=== PATIENT | male | born 1950 | race Caucasian/White ===

== ENCOUNTER → 2024-10-23 12:37 | Day surgery (SDC) | payer MEDICARE, OTHER, SELFPAY ==
--- NOTE | 2024-10-23 16:56 | ITS.CL.IMPLP ---
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
Implant Loop
Procedure Report:
Date of Procedure: October 23, 2024.
Procedure: Insertable Loop Recorder Implant.
Indication: Atrial fibrillation monitoring.
Performing physician: Lauro Shin MD, [facility].
Implant: Medtronic; Reveal LINQII; Model# LNQ22; Serial# [id number].
Technique: The patient was prepped and draped in the usual fashion. A time-out was performed. No intravenous sedation was administered. Local anesthetic was applied to the left pre-pectoral subcutaneous tissue. Using the insertion kit an incision
was made left of the midline in the fourth intercostal space and the device was implanted subcutaneously and directed towards the nipple. Hemostasis was excellent. The skin was closed with steri-strips. The estimated blood loss was less than 1 ml.
There were no complications. No fluoroscopy. R waves measured 0.44 mV and P waves were visible.
Final Programming: Detections: Afib, tachy at 160 bpm, angelika at 30 bpm, pause at 3 sec.
Conclusion: Uncomplicated insertable loop implant.
Recommendation: Routine post-insertable loop care. The device is MRI conditional without a waiting period and up to 3 Lia.
cc: Elvin Castro MD and Porter Hernandez MD.
--- NOTE | 2024-10-23 17:02 | ITS.CL.IMPLP ---
Addendum entered and electronically signed by Lauro Shin MD 10/28/24 09:57:
ERROR. THIS REPORT DOES NOT BELONG TO [facility].
Original Note:
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
Implant Loop
Procedure Report:
Date of Procedure: October 23, 2024.
Procedure: Insertable Loop Recorder Implant.
Indication: Embolic stroke of unknown source.
Performing physician: Lauro Shin MD, [facility].
Implant: Medtronic; Reveal LINQII; Model# LNQ22; Serial# [id number].
Technique: The patient was prepped and draped in the usual fashion. A time-out was performed. No intravenous sedation was administered. Local anesthetic was applied to the left pre-pectoral subcutaneous tissue. Using the insertion kit an incision
was made left of the midline in the fourth intercostal space and the device was implanted subcutaneously and directed towards the nipple. Hemostasis was excellent. The skin was closed with steri-strips. The estimated blood loss was less than 1 ml.
There were no complications. No fluoroscopy. R waves measured 0.35 mV and P waves were visible.
Final Programming: Detections: Afib, tachy at 160 bpm, angelika at 30 bpm, pause at 3 sec.
Conclusion: Uncomplicated insertable loop implant.
Recommendation: Routine post-insertable loop care. The device is MRI conditional without a waiting period and up to 3 Lia.
cc: Tito Santiago MD and Elvin Castro MD.
== END | disposition home or self-care (01) ==
LOC: CATH 12:37
PROVIDERS: ATTENDING PHYSICIAN Internal Medicine Cardiovascular Disease; FAMILY PHYSICIAN Family Medicine; OTHER PHYSICIAN Internal Medicine
DX: Z09 Encounter for follow-up examination after completed treatment for conditions other than malignant neoplasm (principal); I10 Essential (primary) hypertension; I50.32 Chronic diastolic (congestive) heart failure; I48.91 Unspecified atrial fibrillation
CPT/HCPCS: 33285; C1764

== ENCOUNTER → 2025-02-11 14:24 | Outpatient (REF) | payer MEDICARE, OTHER, SELFPAY | LOC: RCS 14:24 | PROVIDERS: ATTENDING PHYSICIAN Internal Medicine; FAMILY PHYSICIAN Family Medicine | DX: I25.810 Atherosclerosis of coronary artery bypass graft(s) without angina pectoris (principal); Z95.3 Presence of xenogenic heart valve; I48.0 Paroxysmal atrial fibrillation | CPT/HCPCS: 93306 ==

== ENCOUNTER 2025-04-21 06:26 | Day surgery (SDC) | payer MEDICARE, OTHER, SELFPAY | END 2025-04-21 13:00 | disposition home or self-care (01) | LOC: GI 06:26 | PROVIDERS: ATTENDING PHYSICIAN Student in an Organized Health Care Education/Training Program | DX: Z12.11 Encounter for screening for malignant neoplasm of colon (principal); K62.5 Hemorrhage of anus and rectum; K64.4 Residual hemorrhoidal skin tags; K57.30 Diverticulosis of large intestine without perforation or abscess without bleeding; K64.8 Other hemorrhoids; R12 Heartburn; K22.89 Other specified disease of esophagus; K31.7 Polyp of stomach and duodenum; K29.50 Unspecified chronic gastritis without bleeding; D13.2 Benign neoplasm of duodenum | CPT/HCPCS: 43239; G0121; 88305; 88342 ==

== ENCOUNTER 2025-07-06 06:11 | Day surgery (SDC) | payer MEDICARE, OTHER, SELFPAY ==
[2025-07-06 07:17] VITALS: BMI 25.2
[2025-07-06 07:18] VITALS: BMI 25.2
[2025-07-06 07:27] VITALS: BP 149/96
[2025-07-06 09:01] VITALS: BP 118/82
[2025-07-06 09:15] VITALS: BP 132/87
[2025-07-06 09:30] VITALS: BP 131/92
== END 2025-07-06 09:37 | disposition home or self-care (01) ==
LOC: SDS 06:11
PROVIDERS: ATTENDING PHYSICIAN Internal Medicine Gastroenterology
DX: D13.2 Benign neoplasm of duodenum (principal); K22.89 Other specified disease of esophagus; Z79.01 Long term (current) use of anticoagulants
CPT/HCPCS: 43254; C1769; 88305

== ENCOUNTER 2025-07-07 11:50 | Inpatient (IN) | payer MEDICARE, OTHER, SELFPAY ==
[2025-07-07] VITALS (27 sets, daily range): BP systolic 18–134; BP diastolic 66–95; PULSE 71–108; BMI 25.9
[2025-07-07 09:22] LABS: Hematocrit 24.8 % (39.0-52.0); Hemoglobin 7.9 g/dL (13.0-18.0); Mean Corp Hgb Conc. 31.9 g/dL (33.0-37.0); Mean Corpuscular Volume 65.6 fL (80.0-94.0); Nucleated Red Blood Cells % 0.2 % (-); Platelet Count 170 10^3/uL (130-400); Red Cell Dist. Width 16.7 % (11.5-14.5)
--- NOTE | 2025-07-07 09:27 | ED.GENMED ---
History of Present Illness
<Al Lugo PA-C - Last Filed: 07/07/25 12:23>
General
Chief Complaint: Rectal Bleeding
Source: patient and spouse
Time Seen by Provider: 07/07/25 08:46
History of Present Illness
History of Present Illness:
74-year-old male with extensive cardiopulmonary past medical history, previous diverticulitis status post duodenal polyp removal yesterday by Dr. Iqbal from GI who presents to the ER for evaluation after having multiple episodes of dark stools
intermixed with maroon stool, lightheaded/dizzy but without any pain associated. Denies any history of similar although he notes that he has had hemorrhoidal bleeding in the past. Denies any fevers, chills, rigors. He had contacted the GI office
this morning and was recommended to come to the ER for further evaluation. Patient is normally on Coumadin however he has not taken the Coumadin since last Saturday. Patient unsure of his baseline hemoglobin.
Past History
<Al Lugo PA-C - Last Filed: 07/07/25 12:23>
Past History
ED Past Medical History: Arrthythmia, CAD, CHF, HTN, Hypercholesterolemia and Valvular disease
ED Past Surgical History: Cardiac, Tonsilectomy and Urological
Social History
Tobacco: Non-smoker
Alcohol: None
Drug: None
Personal:
Living: with family
Review of Systems
<Al Lugo PA-C - Last Filed: 07/07/25 12:23>
Review of Systems
All Other Systems: ROS reviewed and negative except as documented in HPI and ROS
Phy Exam
<Al Lugo PA-C - Last Filed: 07/07/25 12:23>
Physical Exam
Physical Exam:
GENERAL: Alert , in no apparent distress
HEAD: Normocephalic atraumatic
EYE: conjunctiva clear
NECK: Supple, no significant adenopathy.
ENT: o/p clr, mmm.
CARDIAC: Regular rate and rhythm
LUNGS: Clear breath sounds bilaterally, no acute respiratory distress, no wheezes/rales/rhonchi
RECTAL EXAM: Chaperoned by ED RN Earl: Maroon stool, heme positive
NEUROLOGICAL: Alert and oriented
SKIN: Warm and dry, skin intact. Somewhat pale in appearance
MUSCULOSKELETAL: well perfused.
PSYCH: Normal and appropriate interaction.
Scores
<Al Lugo PA-C - Last Filed: 07/07/25 12:23>
Heart Failure Risk
Heart Failure Risk Score: Not Applicable
Heart Score for Chest Pain Patients
STEMI patient?: Not applicable
Withdrawal Assessment of Alcohol
Withdrawal Assessment Completed?: Not applicable
Course
<Al Lugo PA-C - Last Filed: 07/07/25 12:23>
Orders/Labs/Results
Orders:
Orders
07/07/25 09:06
Type+Screen Urgent
Basic Metabolic Panel Urgent
Complete Blood Count/With Diff Urgent
PTT Urgent
Prothrombin Time Urgent
07/07/25 10:32
Admit/Transfer Patient As Directed
Co-Sign Provider:
Level of Care: Inpatient admission
Assign to:: Telemetry
Physician / Group: Hospitalists
Diagnosis: Acute lower GI bleed
Reason for Telemetry: Other
Other Reason for Telemetry: history of AVR
Date to Stop Telemetry: 07/09/25
Time to Stop Telemetry: 11:00
Reason for Hospitalization: Acute lower GI bleed
Expected length of stay greater than two midnights?: Yes
ELOS- Estimated Length of Stay in days: 2
I certify the patient meets the requirements for IP care: Yes
PRN Pain Medication Management As Directed
May give lesser potent ordered pain med per pt: Yes
preference::
Protocol:: Medication orders for pain may be administered in a
manner that supports deferring to patient preference
when the pt is:
- Requesting an ordered lesser potent pain medication.
Least to most potent pain medications are defined
as: acetaminophen < NSAID < tramadol < opioids
(morphine, oxycodone, hydromorphone).
- Requesting a lesser dose of the same medication IF
ORDERED.
- Requesting a less intrusive route of administration
if both routes are prescribed by the provider (PO <
IV).
07/07/25 10:40
Code Status As Directed
Resuscitation Status: Full Code
07/07/25 10:53
Pantoprazole [Protonix IV] 80 mg IV NOW STA
07/07/25 10:58
* Blood Bank Products Urgent
Blood Bank Products: *Packed RBC Leuko(PRBC's)
Quantity: 1
Transfuse Today: Yes
Reason: Bleeding
07/07/25 11:40
0.9% Sodium Chloride 500 ml [Nss] 500 ml IV BOLUS
07/07/25 11:43
Metoprolol Xl [Toprol Xl] 25 mg PO NOW ONE
07/07/25 12:00
Flush (0.9% Sodium Chloride) [Flush (Nss)] See Dose Instructions IV PER PROTOCOL
07/09/25 11:00
DC Protocol for Telemetry ONCE
Abnormal Lab Results
07/07/25
09:06
RBC 3.78 L 10^6/uL
(4.70-6.10)
Hgb 7.9 L g/dL
(13.0-18.0)
Hct 24.8 L %
(39.0-52.0)
MCV 65.6 L fL
(80.0-94.0)
MCH 20.9 L pg
(27.0-31.0)
MCHC 31.9 L g/dL
(33.0-37.0)
RDW 16.7 H %
(11.5-14.5)
Absolute Neuts (auto) 6.8 H 10^3/uL
(1.4-6.5)
Absolute Monos (auto) 0.7 H 10^3/uL
(0.1-0.6)
PT 14.7 H Sec
(11.4-14.6)
APTT 22.2 L Sec
(23.4-35.0)
Chloride 110 H mmol/L
(98-107)
Carbon Dioxide 21 L mmol/L
(22-30)
BUN 30 H mg/dl
(9-20)
Glucose 118 H mg/dl
(70-99)
Crossmatch IS Only See Detail
07/07/25 09:06
07/07/25 09:06
Vital Signs
Initial and Last Documented VS:
Initial Vital Signs
Temp Pulse Resp BP Pulse Ox
97.8 F 88 18 114/66 95
07/07/25 08:21 07/07/25 08:21 07/07/25 08:21 07/07/25 08:21 07/07/25 08:21
Last Documented Vital Signs
Temp Pulse Resp BP Pulse Ox
97.9 F 72 21 110/75 100
07/07/25 10:00 07/07/25 10:00 07/07/25 10:00 07/07/25 10:00 07/07/25 10:00
<Geovani Gaytan MD - Last Filed: 07/07/25 11:45>
Orders/Labs/Results
Orders:
Orders
07/07/25 09:06
Type+Screen Urgent
Basic Metabolic Panel Urgent
Complete Blood Count/With Diff Urgent
PTT Urgent
Prothrombin Time Urgent
07/07/25 10:32
Admit/Transfer Patient As Directed
Co-Sign Provider:
Level of Care: Inpatient admission
Assign to:: Telemetry
Physician / Group: Hospitalists
Diagnosis: Acute lower GI bleed
Reason for Telemetry: Other
Other Reason for Telemetry: history of AVR
Date to Stop Telemetry: 07/09/25
Time to Stop Telemetry: 11:00
Reason for Hospitalization: Acute lower GI bleed
Expected length of stay greater than two midnights?: Yes
ELOS- Estimated Length of Stay in days: 2
I certify the patient meets the requirements for IP care: Yes
PRN Pain Medication Management As Directed
May give lesser potent ordered pain med per pt: Yes
preference::
Protocol:: Medication orders for pain may be administered in a
manner that supports deferring to patient preference
when the pt is:
- Requesting an ordered lesser potent pain medication.
Least to most potent pain medications are defined
as: acetaminophen < NSAID < tramadol < opioids
(morphine, oxycodone, hydromorphone).
- Requesting a lesser dose of the same medication IF
ORDERED.
- Requesting a less intrusive route of administration
if both routes are prescribed by the provider (PO <
IV).
07/07/25 10:40
Code Status As Directed
Resuscitation Status: Full Code
07/07/25 10:53
Pantoprazole [Protonix IV] 80 mg IV NOW STA
07/07/25 10:58
* Blood Bank Products Urgent
Blood Bank Products: *Packed RBC Leuko(PRBC's)
Quantity: 1
Transfuse Today: Yes
Reason: Bleeding
07/07/25 11:40
0.9% Sodium Chloride 500 ml [Nss] 500 ml IV BOLUS
07/07/25 11:43
Metoprolol Xl [Toprol Xl] 25 mg PO NOW ONE
07/07/25 12:00
Flush (0.9% Sodium Chloride) [Flush (Nss)] See Dose Instructions IV PER PROTOCOL
07/09/25 11:00
DC Protocol for Telemetry ONCE
Abnormal Lab Results
07/07/25
09:06
RBC 3.78 L 10^6/uL
(4.70-6.10)
Hgb 7.9 L g/dL
(13.0-18.0)
Hct 24.8 L %
(39.0-52.0)
MCV 65.6 L fL
(80.0-94.0)
MCH 20.9 L pg
(27.0-31.0)
MCHC 31.9 L g/dL
(33.0-37.0)
RDW 16.7 H %
(11.5-14.5)
Absolute Neuts (auto) 6.8 H 10^3/uL
(1.4-6.5)
Absolute Monos (auto) 0.7 H 10^3/uL
(0.1-0.6)
PT 14.7 H Sec
(11.4-14.6)
APTT 22.2 L Sec
(23.4-35.0)
Chloride 110 H mmol/L
(98-107)
Carbon Dioxide 21 L mmol/L
(22-30)
BUN 30 H mg/dl
(9-20)
Glucose 118 H mg/dl
(70-99)
Crossmatch IS Only See Detail
07/07/25 09:06
07/07/25 09:06
Vital Signs
Initial and Last Documented VS:
Initial Vital Signs
Temp Pulse Resp BP Pulse Ox
97.8 F 88 18 114/66 95
07/07/25 08:21 07/07/25 08:21 07/07/25 08:21 07/07/25 08:21 07/07/25 08:21
Last Documented Vital Signs
Temp Pulse Resp BP Pulse Ox
97.9 F 72 21 110/75 100
07/07/25 10:00 07/07/25 10:00 07/07/25 10:00 07/07/25 10:00 07/07/25 10:00
<Al Lugo PA-C - Last Filed: 07/07/25 12:23>
MDM/Problems Addressed
Differential Diagnosis Includes:
Suspected bleeding from procedural site within the duodenum
Gastritis
Peptic ulcer disease
Anemia
Less concern for lower GI bleeding/diverticular bleed/hemorrhoidal bleeding
MDM/Problems Addressed:
74-year-old male presenting to the ER for evaluation of bleeding post polypectomy from the duodenum yesterday, patient normally anticoagulated but he has held this for the last 6 days. No fevers or infectious symptoms and no pain presently. Will
check labs. Patient hooked up to monitoring engineer.
Chronic conditions affecting care: CAD and Arrhythmia
<Al Lugo PA-C - Last Filed: 07/07/25 12:23>
*Pulse Oximetry
SaO2: 98
Oxygen Mode of Delivery: Room air
Patient hypoxic: no
*Critical Care Note
Total Time (30-74mins, 75-104mins- exclusive of procedures): Not Applicable
Data Reviewed
Review of Other/Old Records Reveals: Labs and Records
Source: patient and spouse
<Al Lugo PA-C - Last Filed: 07/07/25 12:23>
Patient Management
Discussion with other providers: Hospitalist and Human Service Coordinator
Escalation/DeEscalation of care consider admission/obs:
GI team notified patient's hemoglobin currently 7.9. In 2021 multiple labs drawn showing hemoglobin is in the sevens. Patient unsure if this is his baseline. Call placed to primary care office to see if they have any updated lab results. GI team
agrees patient should be admitted to be observed. Hospitalist team accepts for continued evaluation and treatment.
<Al Lugo PA-C - Last Filed: 07/07/25 12:23>
Update Note
Update Note:
Received report from patient's primary care office that his last hemoglobin in April was 10.7. Hospitalist team updated.
ED Attending Note
<Al Lugo PA-C - Last Filed: 07/07/25 12:23>
-
Portions of this chart may have been created with voice recognition software.� Occasional wrong word or��sound alike� substitutions may have occurred due to the inherent limitations of voice recognition software.
<Geovani Gaytan MD - Last Filed: 07/07/25 11:45>
ED Attending Note
Patient seen and examined by attending physician: Yes
ED Attending Note:
Patient status post elective outpatient endoscopy yesterday afternoon, for biopsy, due to polyp noted during endoscopy 1 month ago, presents ED secondary to multiple episodes of bloody loose bowel movements since the procedure yesterday, along with
weakness and dizziness. Patient does take Coumadin, which had been held secondary to scheduled procedure. Denies fever or chills. Denies abdominal pain. Denies headache.
Physical Exam
General: no apparent distress, not acutely ill. afebrile
Head: nc/at. eomi
Neck: supple. no meningeal signs.
Heart: s1/s2 regular rate and rhythm
Lungs: no acute respiratory distress. clear bilaterally
Abdomen: normal bowel sounds. not tender.
Neuro: alert and oriented x 3. no focal neurological deficits
Skin: no rash
Psychiatric: well kept. interactive and cooperative
Extremities: no edema. no calf tenderness.
Patient with heme positive stool on exam. H&H noted, noted for significant decreased hemoglobin compared to outpatient blood work from the summer. Patient will be transfused. Blood transfusion consent on the chart.
GI physician on-call notified via [place] text.
Discharge Plan
Departure
Patient Disposition: Admit
Date of Disposition: 07/07/25
Time of Disposition: 09:38
Presentation/result/management discussed w/ accepting MD/DO: Hospitalist
Discharge Problem:
Acute GI bleeding
Interventions
Interventions:
*Risk Screen - Suicide Last Done: 07/07/25 08:21
*General Assessment Last Done: 07/07/25 08:21
*Neglect/Abuse Screening Last Done: 07/07/25 08:21
JX-Tlbisz-Uirpejqumj Assessment Last Done: 07/07/25 09:17
ED- Cardiac Assessment Last Done: 07/07/25 09:17
ED- Pulmonary Assessment Last Done: 07/07/25 09:17
[2025-07-07 09:42] LABS: Blood Urea Nitrogen 30 mg/dl (9-20); Calcium 8.5 mg/dl (8.4-10.2); Carbon Dioxide 21 mmol/L (22-30); Chloride 110 mmol/L (98-107); Estimated Creatinine Clearance 65 ml/min; Glucose 118 mg/dl (70-99); Potassium 4.0 mmol/L (3.5-5.1); Sodium 138 mmol/L (135-145); eGFR > 60.00
[2025-07-07 09:48] LABS: INR 1.10; PT 14.7 Sec (11.4-14.6)
[2025-07-07 09:49] LABS: APTT 22.2 Sec (23.4-35.0)
--- NOTE | 2025-07-07 10:23 | CON.GI ---
Addendum entered and electronically signed by Beatriz Malin MD 07/07/25 14:16:
I saw and examined the patient.
The MANAGER RESPIRATORY CARE's note was reviewed and I agree with the note.
Comment: This is a 74-year-old male with past medical history as listed below who recently had a duodenal polypectomy with Dr. Iqbal yesterday and felt well but after he went home around 4 PM he had a large melanotic bowel movement and today around
6.30 he called me and reported a maroon stool with dizziness, I told him to come into the emergency room and his hemoglobin was 7.9 down from 10.7 in April with an elevated BUN level. He is currently getting 1 unit of blood and he denies any
abdominal pain. No nausea or vomiting. He had held his Coumadin for the polypectomy and last dose of Coumadin was on 06/30 and fortunately he has not resumed it yet.
Assessment and plan acute posthemorrhagic anemia with bleeding most likely from recent polypectomy in the second portion of the duodenum. Will schedule him for an emergent endoscopy. He is currently receiving 1 unit of packed red blood cell. he
was hypotensive when he presented to the emergency room and improved with IV fluids. He also is on Protonix bid.
Addendum entered and electronically signed by LITZY House 07/07/25 11:56:
reviewed with Dr. Malin plan for EGD today but pt just drank 2 cup water. Will add for later today if time allows vs in AM. updated pt and family.
Original Note:
Consultation
-
Date/Time Consultation Requested: 07/07/25 1000
Date/Time Consultation Performed: 07/07/25 1030
Requesting Provider: Al Flanagan PA-C
Performing Provider: LITZY Pulido, Beatriz Malin MD
Reason for Consultation: GI bleeding
Medical History
Chief Complaint / HPI
History of Present Illness:
Pt is a 74yo with hx afib on Coumadin, bioprosthetic AVR, prior CABG, thalassemia minor with chronic anemia, CHF, CAD, GERD, HTN, hypercholesterolemia with hx EGD/colon in April with Dr. Minor with noted concern for killian's with neg bx, benign
gastric polyps, single flat duodenal polyp with bx adenomatous polyps. Colon with hemorrhoids and diverticulosis. He returned 07/06 for removal of duodenal polyp adjacent to ampulla with Dr. IQBAL with mucosal resection with treatment with APC. On
return home felt well then around 4 pm noted tingling and dizziness with sweat and large black/red stool at 4pm. He had further stools at 6:30 am and 8 AM then presents for eval prior hbg 10.7 in April then 7.9 on admission with BUN 30.
Pt otherwise admits mild sore throat after procedure and nausea and mild crampy pain with stools. He also admits to some chronic red blood seen with hx hemorrhoids. but denies odynophagia or constipation. Last Coumadin was 06/30 and did not
resume after EGD.
Past Medical History
Past Medical History: Arrhythmias (PAF), CAD, CHF, GERD, HTN, Hypercholesterolemia, Valvular Disease (prior AVR bioprostetic ) and Other (duodenal polyp removal 07/06, skin lesion, jenkins neuroma, diverticulitis, thalassemia minor with chronic anemia)
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
Social History
Tobacco: Non-Smoker
Alcohol: Occasional (2-3 drinks 3 times per week)
Drug: None
Personal:
Living: With Family
Employment: Retired
Family History
Family History: Other (pancreatic CA- sister )
Allergies / Home Medications
Allergy/AdvReac Type Severity Reaction Status Date / Time
No Known Allergies Allergy Verified 07/07/25 08:20
�Medication �Instructions �Recorded
valsartan 80 mg tablet 80 mg PO DAILY Heart 05/15/22
disease/condition
aspirin 81 mg tablet,delayed 81 mg PO DAILY Blood clot 06/20/22
release prevention/tx
atorvastatin 80 mg tablet 80 mg PO DAILY 10/23/24
ezetimibe 10 mg tablet 10 mg PO DAILY 10/23/24
metoprolol succinate 25 mg 25 mg PO DAILY 10/23/24
tablet,extended release 24 hr
tadalafil 5 mg tablet 5 mg PO DAILYPRN PRN nocturia 10/23/24
amlodipine 10 mg tablet 10 mg PO DAILY 07/06/25
cephalexin 500 mg tablet 500 mg PO BID 07/06/25
ofloxacin 0.3 % eye drops 1 drp RIGHT EYE QID 07/06/25
warfarin 2 mg tablet 3 mg PO MOTUWETHFRSA@189907/07/25
warfarin 2 mg tablet 4 mg PO SZYMANSKI@189907/07/25
Review of Systems
-
History Source: Patient and Family
Constitutional: Reports No Symptoms and Other (sweats )
EENT: Reports Other (recent eye cyst removal on abx prior )
Respiratory: Reports No Symptoms
Cardiac: Reports No Symptoms
Abdomen/GI: Reports Abdominal Pain (minimal ), Nausea, Diarrhea, Bloody Stools and Black Stools
: Reports No Symptoms
Musculoskeletal: Reports No Symptoms
Skin: Reports No Symptoms
Neurological: Reports Dizzy
Endocrine: Reports No Symptoms
Hematologic/Lymphatic: Reports Bleeding
Vital Signs
Temp Pulse Resp BP Pulse Ox
97.9 F 72 21 110/75 100
07/07/25 10:00 07/07/25 10:00 07/07/25 10:00 07/07/25 10:00 07/07/25 10:00
Physical Exam
Exam
General: Well Developed, Well Nourished and No Apparent Distress
HEENT: Normocephalic and Anicteric
Respiratory: Clear
Cardiac: Regular Rhythm
GI: Soft, Non Tender and Non Distended
Musculoskeletal: No Clubbing and No Cyanosis
Skin: Warm and Dry
Neuro: Awake, Alert and AO x 3
Psych: Calm
Results
WBC 9.8 10^3/uL (4.8-10.8) 07/07/25 09:06
Hgb 7.9 g/dL (13.0-18.0) L 07/07/25 09:06
Hct 24.8 % (39.0-52.0) L 07/07/25 09:06
MCV 65.6 fL (80.0-94.0) L 07/07/25 09:06
Plt Count 170 10^3/uL (130-400) 07/07/25 09:06
Absolute Neuts (auto) 6.8 10^3/uL (1.4-6.5) H 07/07/25 09:06
PT 14.7 Sec (11.4-14.6) H 07/07/25 09:06
INR 1.10 07/07/25 09:06
APTT 22.2 Sec (23.4-35.0) L 07/07/25 09:06
Sodium 138 mmol/L (135-145) 07/07/25 09:06
Potassium 4.0 mmol/L (3.5-5.1) 07/07/25 09:06
Chloride 110 mmol/L (98-107) H 07/07/25 09:06
Carbon Dioxide 21 mmol/L (22-30) L 07/07/25 09:06
BUN 30 mg/dl (9-20) H 07/07/25 09:06
Creatinine 1.0 mg/dL (0.7-1.3) 07/07/25 09:06
Calcium 8.5 mg/dl (8.4-10.2) 07/07/25 09:06
Diagnostic Image Results:
Prior GI Procedures:
07/06/25 Rasheed - Z-line irregular - No gross lesions in the entire stomach.
- A single duodenal polyp adjacent to the ampulla. Resected and retrieved. Treated with argon plasma coagulation (APC).
- Mucosal resection was performed. Resection and retrieval were complete.
04/2025- [facility] EGD - Normal proximal esophagus and mid esophagus. - Limestone-colored mucosa suspicious for Killian's
esophagus. Biopsied. - Z-line irregular, 41 cm from the incisors.- A few benign appearing gastric polyps. One was resected and retrieved.
- Otherwise, normal stomach on direct and retroflex views. Biopsies were taken with a cold forceps for
Helicobacter pylori testing- A single flat duodenal polyp found in the second
portion. Biopsied - The examination was otherwise normal.
bx adenomatous polyps neg high grade dysphagia, neg dysplasia
04/2025- [facility]cio colonoscopy - Non-thrombosed, external and internal hemorrhoids
found on perianal exam. Source of rectal bleeding
- The examined portion of the ileum was normal.
- Moderate diverticulosis in the sigmoid colon, in the
descending colon and in the transverse colon. This was
most pronounced within the sigmoid colon with
narrowing of the colon in association with the
diverticular opening. There was no evidence of
diverticular bleeding.
- The examination was otherwise normal on direct and
retroflexion views without any AVMs, lesions, masses
or endoscopic signs of inflammation.
- No specimens collected.
Assessment / Plan
-
Pt is a 74yo with hx afib on Coumadin, bioprosthetic AVR, prior CABG, thalassemia minor with chronic anemia, CHF, CAD, GERD, HTN, hypercholesterolemia with hx EGD/colon in April with Dr. Minor with noted concern for killian's with neg bx, benign
gastric polyps, single flat duodenal polyp with bx adenomatous polyps. Colon with hemorrhoids and diverticulosis. He returned 07/06 for removal of duodenal polyp adjacent to ampulla with Dr. IQBAL with mucosal resection with treatment with APC. On
return home felt well then around 4 pm noted tingling and dizziness with sweat and large black/red stool at 4pm. He had further stools at 6:30 am and 8 AM then presents for eval prior hbg 10.7 in April then 7.9 on admission with BUN 30. Pt otherwise
admits mild sore throat after procedure and nausea and mild crampy pain with stools. He also admits to some chronic red blood seen with hx hemorrhoids. but denies odynophagia or constipation. Last Coumadin was 06/30 and did not resume after EGD.
-UGI bleeding likely post polypectomy bleeding with resection of duodenal flat polyp 07/06
-anemia acute blood loss
-afib on Coumadin prior to admission but has been on hold with GI procedure
other med problems:
-bioprosthetic AVR
- prior CABG
- thalassemia minor with chronic anemia chronic hbg 10-11
- CHF
-CAD
-GERD
- HTN
-hypercholesterolemia
PLAN:
Etiology of bleeding likely post polypectomy bleeding --reviewed EGD from 07/06
[address] Dr[address] Malin for EGD today vs close monitoring
for transfusion
NPO
Protonix BID
serial hbg
updated family
NPO
Coumadin hold
-
-
Thank you for consultation and allowing me to participate in the patient's care. Please call the rigging and controls aircraft mechanic GI physician during the after hours with any questions or concerns.
--- NOTE | 2025-07-07 11:00 | HPS.HSE ---
Family Physician
-
Family Physician: Porter Hernandez
Chief Complaint
-
Dizziness and acute GI bleed.
History of Present Illness
Jeffery is a 74-year-old male with PMHx significant for CAD, nonrheumatic severe AR s/p CABG and bioprosthetic AVR (2021), thalassemia trait, moderate diverticulosis, essential hypertension, hyperlipidemia, leg Calve Perthes disease presents to the
ER for evaluation of bright red blood and black stools associated with dizziness. He reports to have upper GI endoscopy with removal of a duodenal polyp yesterday on outpatient basis. Patient went home stable, was feeling fine until afternoon. In
the afternoon he started feeling lightheaded and dizzy with some sweating along with [id number] in both his hands and feet. He woke up in the evening, continued to feel dizzy, dehydrated and reported to have some tingling and numbness in his
hands and feet. In the p.m. he had a huge bowel movement with some bright red blood, maroon-colored stools and black-colored stools. He has assumed it to be a result of postprocedure, called his physician's office who advised him to come to the ER
if it continues to be about the same. Overnight patient had no sleep disturbances, slept well woke up in the morning to have a huge bowel movement that consisted of clear liquids, black and maroon-colored stool again. He called his GI office and
presented to the ER upon their recommendation. He also reports to have mild left lower quadrant pain, nonradiating, stabbing about 1-2/10 in intensity that lasted for about 2 to 3 hours yesterday.
Upon review of systems, he reports to have some nausea and bloating. He denies having emesis, hematuria, dysuria, fevers, chills, chest pain, shortness of breath on exertion, orthopnea, PND. He also denies having any focal weakness or paresthesias.
Patient reports to have GI bleeds in the past associated with his internal hemorrhoids. He also reports to have been on warfarin for bioprosthetic aortic valve and A-fib, which was on hold since Saturday of last week for his procedure. Of note
his baseline hemoglobin is between 10-12 for thalassemia trait, he was recently diagnosed with infected stye of his right eye for which she is using antibiotics.
Medical History
Past Medical History
Past Medical History: Reports Other (CAD, nonrheumatic severe AR s/p CABG and bioprosthetic AVR (2021), thalassemia trait, moderate diverticulosis, essential hypertension, hyperlipidemia, leg Calve Perthes disease)
Past Surgical History: Reports Other (S/p CABG, bioprosthetic aortic valve replacement.)
Social History
Tobacco: Non-smoker
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
Drug: None
Personal:
Living: With Family
Employment: Retired
Family History
Family History: Other (Father with history of CABG, mother with history of brain cancer and pulmonary fibrosis, lung transplant and brother.)
Allergies / Home Medications
Allergies reflects when Allergies were last updated in [facility].
Home Medications with original date entered in [facility]
Allergy/Medication List:
Allergies
Allergy/AdvReac Type Severity Reaction Status Date / Time
No Known Allergies Allergy Verified 07/07/25 08:20
Home Medications
valsartan 80 mg tablet 80 mg PO DAILY Heart disease/condition 05/15/22
aspirin 81 mg tablet,delayed release 81 mg PO DAILY Blood clot prevention/tx 06/20/22
atorvastatin 80 mg tablet 80 mg PO DAILY 10/23/24
ezetimibe 10 mg tablet 10 mg PO DAILY 10/23/24
metoprolol succinate 25 mg tablet,extended release 24 hr 25 mg PO DAILY 10/23/24
tadalafil 5 mg tablet 5 mg PO DAILYPRN PRN nocturia 10/23/24
amlodipine 10 mg tablet 10 mg PO DAILY 07/06/25
cephalexin 500 mg tablet 500 mg PO BID 07/06/25
ofloxacin 0.3 % eye drops 1 drp RIGHT EYE QID 07/06/25
warfarin 2 mg tablet 3 mg PO MOTUWETHFRSA@189907/07/25
warfarin 2 mg tablet 4 mg PO SZYMANSKI@189907/07/25
Review of Systems
-
History Source: Patient
A 12 point ROS was completed and negative except as noted: Yes
Constitutional: Reports Fatigue
EENT: Reports No Symptoms
Respiratory: Reports No Symptoms
Cardiac: Reports Diaphoresis
Abdomen/GI: Reports Abdominal Pain, Nausea, Bloody Stools and Black Stools
: Reports No Symptoms
Musculoskeletal: Reports No Symptoms
Skin: Reports No Symptoms
Neurological: Reports Headache
Endocrine: Reports No Symptoms
Hematologic/Lymphatic: Reports No Symptoms
Psych: Reports No Symptoms
Physical Exam
Vital Signs
Vital Signs
Temp Pulse Resp BP Pulse Ox
97.9 F 72 21 110/75 100
07/07/25 10:00 07/07/25 10:00 07/07/25 10:00 07/07/25 10:00 07/07/25 10:00
Physical Exam
General: Comfortable and Conversant
HEENT: Moist mucous membranes
Respiratory: Clear; No Wheezes, Rales, Rhonchi or Crackles
Cardiac: S1/S2 and Regular Rhythm; No Murmur, Rub or Gallop
GI: Soft, Non Tender, Non Distended, Normal Bowel Sounds and No Hepatosplenomegaly
Rectal: Hem Positive
Genito-urinary: Deferred by me
Musculoskeletal: No Clubbing, No Cyanosis and No Edema
Neuro: AO x 3 and Nonfocal/grossly intact
Psych: Calm
Laboratory Results
-
07/07/25 09:06
07/07/25 09:06
Laboratory Results
PT 14.7 Sec (11.4-14.6) H 07/07/25 09:06
INR 1.10 07/07/25 09:06
APTT 22.2 Sec (23.4-35.0) L 07/07/25 09:06
Data Reviewed
-
Medical Tests (Nuc Med, Echo, EKG etc): Image Personally Visualized and interpreted, Report Reviewed by me, Discussed with Physician, Discussed with Patient and Discussed with Family
Lab Data: Labs Reviewed by me, Discussed with Physician, Discussed with Patient and Discussed with Family
Impression/Plan
-
IMPRESSION: 74-year-old male with PMHx significant for CAD, nonrheumatic severe AR s/p CABG and bioprosthetic AVR (2021), thalassemia trait, moderate diverticulosis, essential hypertension, hyperlipidemia, leg Calve Perthes disease presents to the
ER for evaluation of bright red blood and black stools associated with dizziness. S/p endoscopy on 07/06/2025. Patient is being admitted for evaluation of acute GI bleed.
PLAN:
# Acute GI bleed-
Likely secondary to procedure yesterday versus colonic diverticulosis.
H&H-hemoglobin at 7.9, baseline [id number] (thalassemia trait)
Elevated BUN at 30 without elevation in serum creatinine.
Hemodynamically stable, s/p IV Protonix in the ER.
Admit to telemetry.
Hold Coumadin and aspirin. Continue Protonix twice daily.
Transfuse 1 unit of hemoglobin now, trend H&H.
Transfuse hemoglobin if less than 8.
GI consulted, appreciate inputs.
Currently n.p.o., advance diet per GI recommendations.
# Acute blood loss anemia-
Baseline [id number] (thalassemia trait)
From GI bleed, transfuse 1 unit blood.
Trend H&H.
# Paroxysmal A-fib-
On rate control with Toprol-XL.
History of bioprosthetic AVR
On Coumadin, held since 06/30/2025
Continue cardiac monitoring for A-fib
# Essential hypertension-
Continue amlodipine 10 mg p.o.
Continue valsartan 80 mg.
# Hyperlipidemia-
Continue ezetimibe and atorvastatin
# Infected external hordoleum -
Right eye, on cephalexin and ofloxacin
Continue the course through 07/10.
# Conditions SUPERINTENDENT PIER-
CAD s/p CABG
Nonrheumatic severe AR s/p bioprosthetic AVR
# DVT prophylaxis-
Sequential compression devices
# CODE STATUS-
Full code.
--- NOTE | 2025-07-07 11:05 | W.PN.UPDATE ---
Update Note
Progress Note Update
This is an addendum to H&P written by resident physician Dr. Emily James
I saw and examined the patient.
The LOAN INTERVIEWER [employer]'s note was reviewed and I agree with the note.
Comment:
Mr. Jeffery Reddy is a 74 yo man with hx CAD s/p CABG, atrial fibrillation, s/p bioprosthetic aortic valve replacement, thalassemia (baseline Hg 10-11), HTN, HLD s/p EGD with duodenal polyp removal yesterday presents with two episodes of black and
bloody stools. Triage vitals stable. labs with Hg 7.9, drop from 10-11 baseline, BUN 30, Cr 1.0. On exam patient is comfortable, AAO x 3, chest clear, mild epigastric tenderness.
UGIB s/p polyp removal EGD
-admit to telemetry
-transfuse 1 unit PRBC for Hg 7.9 and hx CAD
-IV Protonix
-keep NPO, maintenance IVF
CAD s/p CABG
s/p bioprosthetic valve
Essential HTN
HLD
DVT PPx SCD
Remainder of plan per resident physician note
76 minutes spent on patient care
--- NOTE | 2025-07-07 11:41 | CM ---
Patient seen at bedside with patient spouse in ED. Patient states that he lives in a split level home and that his PCP is Dr. Hernandez. Patient uses the [facility] on on . Patient has no DME at home and he last needed [facility] 3 years ago
following surgery. CM will continue to follow for discharge planning needs.
Plan; home with no needs vs VN; pending medical treatment plan
[2025-07-07] MEDS: TOPROL XL 25 MG PO (11:59)
[2025-07-07] MEDS: PROTONIX IV 80 MG IV (12:00)
[2025-07-07] MEDS: NSS 500 IV (12:00)
[2025-07-07 15:21] LABS: Hematocrit 24.8 % (39.0-52.0); Hemoglobin 8.3 g/dL (13.0-18.0)
[2025-07-07] MEDS: PROTONIX 100 IV (16:15)
[2025-07-07] MEDS: OCUFLOX 1 DROP RIGHT EYE ×2 (16:16→19:49)
--- NOTE | 2025-07-07 16:38 | PTCARENOTE ---
received pt from GI lab s/p endoscopy. Pt aaox3, able to make needs known. at bedside. Admission questions completed. Ortho VS done. IV protonix gtt started through [facility]. H&H Q8 x3, next to be drawn at 23:00. Last hgb 8.3 from 7.9 prior.
Coumadin remains on hold, last dose Saturday 06/30. NSR on monitor, HR 60-70s. VSS. Pt resting comfortably in bed at this time. Care ongoing.
[2025-07-07] MEDS: KEFLEX 500 MG PO (19:46)
[2025-07-07 23:33] LABS: Hematocrit 24.2 % (39.0-52.0); Hemoglobin 8.1 g/dL (13.0-18.0)
[2025-07-08] VITALS (8 sets, daily range): BP systolic 111–144; BP diastolic 73–81; PULSE 69–70; O2SAT 99
[2025-07-08] MEDS: PROTONIX 100 IV (01:49)
--- NOTE | 2025-07-08 07:31 | W.PN.GI.CBS2 ---
Today's Communication / Plan
-
low residue diet
Assessment / Plan
-
Pt is a 74yo with hx afib on Coumadin, bioprosthetic AVR, prior CABG, thalassemia minor with chronic anemia, CHF, CAD, GERD, HTN, hypercholesterolemia with hx EGD/colon in April with Dr. Minor with noted concern for killian's with neg bx, benign
gastric polyps, single flat duodenal polyp with bx adenomatous polyps. Colon with hemorrhoids and diverticulosis. He returned 07/06 for removal of duodenal polyp adjacent to ampulla with Dr. WALTON with mucosal resection with treatment with APC. On
return home felt well then around 4 pm noted tingling and dizziness with sweat and large black/red stool at 4pm. He had further stools at 6:30 am and 8 AM then presents for eval prior hbg 10.7 in April then 7.9 on admission with BUN 30. Pt otherwise
admits mild sore throat after procedure and nausea and mild crampy pain with stools. He also admits to some chronic red blood seen with hx hemorrhoids. but denies odynophagia or constipation. Last Coumadin was 06/30 and did not resume after EGD.
-UGI bleeding likely post polypectomy bleeding with resection of duodenal flat polyp 07/06
-anemia acute blood loss
-afib on Coumadin prior to admission but has been on hold with GI procedure
other med problems:
-bioprosthetic AVR
- prior CABG
- thalassemia minor with chronic anemia chronic hbg 10-11
- CHF
-CAD
-GERD
- HTN
-hypercholesterolemia
PLAN:
Post polypectomy bleed- status post endoscopy 07/07/2025 noted to have ulcer at the site of polypectomy in second portion of duodenum with visible vessel and bleeding injected with epinephrine and 3 clips were placed with no further bleeding
Hemoglobin stable
No further bowel movement/melena since after the endoscopy
Will start on low residue diet
Okay to DC home later today
Can restart Coumadin tomorrow
Subjective
Subjective
Date of Service: July 08, 2025
No further bowel movement since after the endoscopy. Hemoglobin stable. No abdominal pain
Objective
Data Reviewed
Laboratory Data:
Laboratory Results
PT 14.7 Sec (11.4-14.6) H 07/07/25 09:06
INR 1.10 07/07/25 09:06
APTT 22.2 Sec (23.4-35.0) L 07/07/25 09:06
Vital Signs and I&O:
Vital Signs
Temp Pulse Resp BP Pulse Ox
98.8 F 71 17 117/74 98
07/08/25 03:03 07/08/25 03:03 07/08/25 03:03 07/08/25 03:03 07/08/25 03:03
I&O
07/07/25 07/08/25 07/09/25
06:59 06:59 06:59
Intake Total 560 / 560
Output Total 1000 / 1000
Balance -440 / -440
Physical Exam
Physical Exam
Cardiology: Irregular Rate/Rhythm
Pulmonary: Clear
GI: Soft, Non Distended, Non Tender and Normal Bowel Sounds
[2025-07-08] MEDS: KEFLEX 500 MG PO (08:33)
[2025-07-08] MEDS: ZETIA 10 MG PO (08:34)
[2025-07-08] MEDS: ASPIR LOW (ENTERIC COATED) 81 MG PO (08:34)
[2025-07-08] MEDS: TOPROL XL 25 MG PO (08:34)
[2025-07-08 08:35] LABS: Hematocrit 24.1 % (39.0-52.0); Hemoglobin 7.9 g/dL (13.0-18.0); Mean Corp Hgb Conc. 32.8 g/dL (33.0-37.0); Mean Corpuscular Volume 67.7 fL (80.0-94.0); Nucleated Red Blood Cells % 0 % (-); Platelet Count 135 10^3/uL (130-400); Red Cell Dist. Width 17.6 % (11.5-14.5)
[2025-07-08] MEDS: OCUFLOX 1 DROP RIGHT EYE ×2 (08:35→14:36)
[2025-07-08 08:57] LABS: Blood Urea Nitrogen 18 mg/dl (9-20); Calcium 8.3 mg/dl (8.4-10.2); Carbon Dioxide 24 mmol/L (22-30); Chloride 111 mmol/L (98-107); Estimated Creatinine Clearance 72 ml/min; Glucose 91 mg/dl (70-99); Potassium 4.3 mmol/L (3.5-5.1); Sodium 138 mmol/L (135-145); eGFR > 60.00
--- NOTE | 2025-07-08 09:27 | W.PN.HOSP.TC ---
Today's Communication/Plan
-
transfuse 1 unit then plan for discharge
Assessment / Plan
Assessment / Plan
Mr. Jeffery Reddy is a 74 yo man with hx CAD s/p CABG, atrial fibrillation, s/p bioprosthetic aortic valve replacement, thalassemia (baseline Hg 10-11), HTN, HLD s/p EGD with duodenal polyp removal yesterday presents with two episodes of black and
bloody stools. Triage vitals stable. labs with Hg 7.9, drop from 10-11 baseline.
UGIB s/p polyp removal EGD day prior
Acute Blood Loss Anemia
-admitted to tele
-s/p 1 unit PRBC on admission
-now s/p EGD 07/07 with finding oozing vessel s/p Epi and clips; no further bleeding overnight
-patient without change in Hg post transfusion in setting of active bleed - transfuse 1 more PRBC today
-continue Protonix
-OK to resume coumadin tomorrow
Stye right eye
-improving
continue Keflex
-patient educated on warm compresses
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
s/p bioprosthetic valve
Essential HTN - resume home BP regimen tomorrow
HLD
DVT PPx SCD
FULL CODE
Anticipated Discharge: Today
Subjective/Interval History
-
Date of Service: July 08, 2025
feeling well
no further bleeding overnight
Objective Data
-
Labs:
Laboratory Results
07/07/25 07/08/25
23:22 08:04
WBC 7.8
Hgb 8.1 L 7.9 L
Hct 24.2 L 24.1 L
Plt Count 135 D
Sodium 138
Potassium 4.3
Chloride 111 H
Carbon Dioxide 24
BUN 18
Creatinine 0.9
Glucose 91
Calcium 8.3 L
Vital Signs:
Vital Signs
Temp Pulse Resp BP Pulse Ox
97.9 F 61 16 130/77 98
07/08/25 07:10 07/08/25 07:10 07/08/25 07:10 07/08/25 07:10 07/08/25 07:10
I&O
07/07/25 07/08/25 07/09/25
06:59 06:59 06:59
Intake Total 810 / 810
Output Total 1000 / 1000
Balance -190 / -190
Review of Systems
-
History Source: Patient
All other systems: Reviewed and negative
Physical Exam
-
General: No Apparent Distress
HEENT: PERRLA
Respiratory: Clear to Auscultation; Negative Wheezes
Cardiac: Regular Rhythm and S1/S2
GI: Soft and Nontender
Musculoskeletal: No Edema
Skin: Warm and Dry; Negative Rash
Neuro: AO x 3
Psych: Calm
Data Reviewed
-
Diagnostic Radiology: Report Reviewed by me
Labs: Labs Reviewed by me
[2025-07-08] MEDS: LIPITOR 80 MG PO (10:04)
--- NOTE | 2025-07-08 10:18 | PTOTSP ---
pt currently requires supervision to no assistance to complete simple ADLs, functional transfers, ambulation. pt demonstrates no dizziness with activity; no acute OT needs identified at this time. will sign off.
--- NOTE | 2025-07-08 10:31 | PTOTSP ---
Pt is independent with bed mobility, transfers, and ambulation in his room. He declined to practice stairs due to not being dressed and will be getting blood transfusion. No difficulty is anticipated. No acute PT needs. Will sign off.
--- NOTE | 2025-07-08 11:13 | W.DS.TRANS ---
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
-
Discharge Instructions:
Discharge Diagnosis/Procedures upper GI Bleeding from site of polypectomy
Diet Low Cholesterol
Activity As tolerated
Driving Restrictions As prior to admission
Bathing Restrictions None
Instructions: Good food sources of iron
Stand-Alone Forms:
Changes to Home Medications: Yes
Discharge Medications:
DC Medications w/original date entered in [email or web address]
valsartan 80 mg tablet 80 mg PO DAILY Heart disease/condition 05/15/22
aspirin 81 mg tablet,delayed release 81 mg PO DAILY Blood clot prevention/tx 06/20/22
atorvastatin 80 mg tablet 80 mg PO DAILY High Cholesterol 10/23/24
ezetimibe 10 mg tablet 10 mg PO DAILY High Cholesterol 10/23/24
metoprolol succinate 25 mg tablet,extended release 24 hr 25 mg PO DAILY Blood Pressure 10/23/24
tadalafil 5 mg tablet 5 mg PO DAILYPRN PRN nocturia 10/23/24
amlodipine 10 mg tablet 10 mg PO DAILY Blood Pressure 07/06/25
cephalexin 500 mg tablet 500 mg PO BID Infection 07/06/25
ofloxacin 0.3 % eye drops 1 drp RIGHT EYE QID Eye Condition 07/06/25
warfarin 2 mg tablet 3 mg PO MOTUWETHFRSA@1900 Blood Clot Prevention/Tx 07/07/25
warfarin 2 mg tablet 4 mg PO SZYMANSKI@1900 Blood Clot Prevention/Tx 07/07/25
pantoprazole 40 mg tablet,delayed release (Protonix) 40 mg PO DAILY #30 tabs 07/08/25
Home Medication Changes
Addition of Protonix
Resume Coumadin tomorrow
Pending Results: No
[2025-07-08] MEDS: PROTONIX 40 MG PO (12:22)
--- NOTE | 2025-07-08 12:37 | W.DCSUMMARY ---
Discharge Summary
Discharge Data
Date of Admission: 07/07/25
Date of Discharge: 07/08/25
-
Pending Results: No
Hospital Course
Discharging Physician : Dr. Deidra Butler
Disposition : Home
Primary care physician : Dr. Porter Hernandez
Principal Discharge diagnosis : Upper GI Bleed at Polypectomy Site
Hospital Course :
Mr. Jeffery Reddy is a 74 yo man with hx CAD s/p CABG, atrial fibrillation, s/p bioprosthetic aortic valve replacement, thalassemia (baseline Hg 10-11), HTN, HLD s/p EGD with duodenal polyp removal day prior to admission presents with two episodes
of black and bloody stools. His coumadin had been held since prior to his outpatient GI procedure. Triage vitals stable. Labs with Hg 7.9, drop from 10-11 baseline. Patient was admitted to medicine with GI consulting. He was transfused 1 unit
PRBC. He was started on IV Protonix. He underwent an EGD showing oozing duodenal ulcer at site of recent polypectomy s/p epinephrine injection with 3 clips placed. He was continued on an IV Protonix gtt without melena overnight. Hg 7.9 again the
next morning therefore transfused 1 additional unit prior to discharge. Patient is discharged on daily Protonix with plans for follow up with PCP within one week. He is told OK to resume his Coumadin tomorrow.
Time spent on discharge was 35 minutes.
Important imaging findings :
Procedure findings :
EGD 07/07/25
Impression:
- Z-line irregular, 41 cm from the incisors.
- Small hiatal hernia.
- Large amount of Blood in the second portion of the duodenum.
- Oozing duodenal ulcer with a visible vessel at site of recent
polypectomy. Injected. 3 Clips were placed. 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
[employer].
- No specimens collected.
Discharge Plan
-
Patient Disposition: Home (Routine Discharge)
Discharge Diagnosis/Procedures: upper GI Bleeding from site of polypectomy
Diet: Low Cholesterol
Activity: As tolerated
Driving Restrictions: As prior to admission
Bathing Restrictions: None
Instructions: Good food sources of iron
Referrals:
Porter Hernandez MD [Family Provider, [facility]] - in less than 1 week
Additional Discharge Medication Instructions: OK to resume Coumadin tomorrow (07/09/25)
You are started on Protonix 40mg daily to help with ulcer healing
Prescriptions:
New
pantoprazole [Protonix] 40 mg tablet,delayed release (DR/EC)
40 mg PO DAILY Qty: 30 0RF
Continued
valsartan 80 mg Tablet
80 mg PO DAILY
aspirin 81 mg tablet,delayed release (DR/EC)
81 mg PO DAILY
atorvastatin 80 mg Tablet
80 mg PO DAILY
metoprolol succinate 25 mg Tablet Extended Release 24 Hr
25 mg PO DAILY
ezetimibe 10 mg Tablet
10 mg PO DAILY
tadalafil 5 mg Tablet
5 mg PO DAILYPRN PRN (Reason: nocturia)
ofloxacin 0.3 % Drops
1 drp RIGHT EYE QID
amlodipine 10 mg Tablet
10 mg PO DAILY
cephalexin 500 mg Tablet
500 mg PO BID
Rx Instructions:
for 10 days starting 06/30/25
warfarin 2 mg Tablet
4 mg PO SZYMANSKI@1900
warfarin 2 mg Tablet
3 mg PO MOTUWETHFRSA@1900
Discharge Orders:
Discharge Patient (As Directed); Ordered 07/08/25
Ordered By: Deidra Butler
Discharge Date and Time
Print Language: TURKMEN
--- NOTE | 2025-07-08 13:07 | CM ---
Chart reviewed. Patient will d/c home today
Met w/ patient and spouse bedside. IMM verbally reviewed, copy provided, copy on chart
No CM needs at this time
Plan: Home, no needs
--- NOTE | 2025-07-08 15:34 | PTCARENOTE ---
Pt transfused with one unit PRBC's w/o signs or symptoms of transfusion reaction. VS: 97.9-65-16-120/73, pulse ox 97%RA.
== END 2025-07-08 17:00 | disposition home or self-care (01) | DRG 378 ==
LOC: 2 SOUTH 11:50
PROVIDERS: Physician Assistant Medical; Student in an Organized Health Care Education/Training Program; ADMITTING PHYSICIAN Student in an Organized Health Care Education/Training Program; CONSULT PHYSICIAN Internal Medicine Gastroenterology; EMERGENCY PHYSICIAN Emergency Medicine; FAMILY PHYSICIAN Family Medicine
PROC: 0W3P8ZZ Control Bleeding in Gastrointestinal Tract, Via Natural or Artificial Opening Endoscopic (ICD-10-PCS; 2025-07-07)
DX: K26.4 Chronic or unspecified duodenal ulcer with hemorrhage (principal); D62 Acute posthemorrhagic anemia; K44.9 Diaphragmatic hernia without obstruction or gangrene; I25.10 Atherosclerotic heart disease of native coronary artery without angina pectoris; Z95.1 Presence of aortocoronary bypass graft; Z95.3 Presence of xenogenic heart valve; D56.3 Thalassemia minor; I11.0 Hypertensive heart disease with heart failure; I50.9 Heart failure, unspecified; Z79.82 Long term (current) use of aspirin; Z79.01 Long term (current) use of anticoagulants; Z80.0 Family history of malignant neoplasm of digestive organs; E78.00 Pure hypercholesterolemia, unspecified; I48.0 Paroxysmal atrial fibrillation; K21.9 Gastro-esophageal reflux disease without esophagitis; K91.840 Postprocedural hemorrhage of a digestive system organ or structure following a digestive system procedure; Y83.8 Other surgical procedures as the cause of abnormal reaction of the patient, or of later complication, without mention of misadventure at the time of the procedure; Z79.899 Other long term (current) drug therapy
CPT/HCPCS: 80048; 85014; 85018; 85025; 85610; 85730; 86850; 86900; 86901; 86920; 88305; 97161; 97166; 99285; P9016